=== PATIENT | male | born 1965 | race Caucasian/White ===

== ENCOUNTER 2020-04-25 14:28 | Emergency (ER) | payer OTHER ==
[~2020-04-25] VITALS: Ht 185.4 cm; Wt 105.9 kg
[~2020-04-25 14:28] MED LIST: DIVA500T2 PO; SERT100T32 PO
[2020-04-25] MEDS ORDERED: LORazepam 1MG TABLET ONE (15:17)
--- NOTE | 2020-04-25 15:20 | NUR ---
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
[2020-04-25 15:29] LABS: BASOPHILS # (AUTO) 0.03 x10^3/uL (0-0.1); BASOPHILS % (AUTO) 0 % (0-1); EOSINOPHILS # (AUTO) 0.05 x10^3/uL (0-0.4); EOSINOPHILS % (AUTO) 1 % (1-7); LYMPHOCYTES # (AUTO) 1.96 x10^3/uL (1-3.4); LYMPHOCYTES % (AUTO) 19 % (22-44); MD NO; MEAN CORPUSCULAR VOLUME 91.2 fL (81-97); MEAN PLATELET VOLUME 7.6 fL (7.4-10.4); MONOCYTES # (AUTO) 0.51 x10^3/uL (0.2-0.8); MONOCYTES % (AUTO) 5 % (2-9); NEUTROPHILS % (AUTO) 75 % (42-75); PLATELET COUNT 264 x10^3/uL (130-400); RED BLOOD COUNT 5.45 x10^6/uL (4.38-5.82); RED CELL DISTRIBUTION WIDTH 13.2 % (9.4-14.8)
[2020-04-25] MEDS ORDERED: LORazepam 1MG TABLET PO ONE (15:30)
[2020-04-25 15:37] LABS: ALANINE AMINOTRANSFERASE 81 U/L (12-78); ALBUMIN 4.3 g/dL (3.4-5.0); ANION GAP 10 mmol/L (5-15); CALCIUM 8.6 mg/dL (8.5-10.1); CHLORIDE 106 mmol/L (98-107); CREATININE 1.37 mg/dL (0.7-1.3)
[2020-04-25 15:40] LABS: ALKALINE PHOSPHATASE 83 U/L (45-117); BILIRUBIN,TOTAL 1.2 mg/dL (0.2-1.0); TOTAL PROTEIN 8.2 g/dL (6.4-8.2)
--- NOTE | 2020-04-25 15:41 | NUR ---
ALL RESULTS ARE BACK AT THIS TIME. CHART UP FOR RECHECK.
[2020-04-25 16:56] VITALS: BP 151/105
== END 2020-04-25 17:03 | disposition home or self-care (01) ==
LOC: ED 17:00
DX: F10.239 Alcohol dependence with withdrawal, unspecified (principal); R45.1 Restlessness and agitation; Y90.0 Blood alcohol level of less than 20 mg/100 ml; R94.31 Abnormal electrocardiogram [ECG] [EKG]
CPT/HCPCS: 36415; 80053; 85025; 93005; 99284

== ENCOUNTER 2020-06-16 11:56 | Emergency (ER) | payer OTHER ==
[~2020-06-16] VITALS: Ht 185.4 cm; Wt 108.5 kg
--- NOTE | 2020-06-16 12:20 | NUR ---
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
[2020-06-16] MEDS ORDERED: LORazepam 1MG TABLET ONE (13:27)
[2020-06-16] MEDS ORDERED: LORazepam 1MG TABLET PO ONE (13:30)
[2020-06-16] MEDS ORDERED: SERT100T PO (13:36)
--- NOTE | 2020-06-16 13:45 | NUR ---
PT MEDICATED PER ORDERS. REPORTS HE GETS PANIC ATTACKS OCCASIONALLY D/T PANIC DISORDER. DOESN'T REPORT ANY PARTICULAR STRESSFUL EVENTS RECENTLY. DENIES SI. STATES HE'S HAD TROUBLE FINDING A PSYCHIATRIST WITH HIS NEW HEALTH INSURANCE.
--- NOTE | 2020-06-16 13:55 | NUR ---
ER PA WAS IN FOR RECHECK. PT MORE CALM, STATES HE'S FEELING BETTER. BP CAME DOWN A LITTLE.
[2020-06-16] MEDS ORDERED: NEOSPORIN OINT. PKT 1 PACKET ONE (14:21)
[2020-06-16 15:00] VITALS: BP 152/109
--- NOTE | 2020-06-16 15:10 | NUR ---
PT STATES HE'S FEELING MUCH MORE CALM NOW. D/C INSTRUCTIONS, MEDS & F/U APPT RV'WD WITH PT, HE VERBALIZES UNDERSTANDING. RX GIVEN X1. PT AMBULATED OUT OF ED WITHOUT DIFFICULTY.
== END 2020-06-16 15:09 | disposition home or self-care (01) ==
LOC: ED 14:19
DX: F41.1 Generalized anxiety disorder (principal); I44.4 Left anterior fascicular block
CPT/HCPCS: 93005; 99283